=== PATIENT | female | born 1940 | race Caucasian/White ===

== ENCOUNTER 2017-06-06 09:56 | Outpatient (CLI) | payer MEDICARE ==
[~2017-06-06 09:56] MED LIST: AMLO2.5T2 PO; CALC600T2 PO; CLOP75TA35 PO; CYAN1TAB41 PO; MELA3TAB PO; MULT-968 PO; PANT-47 PO; RANI150T12 PO; SIMV20TA5 PO
[2017-06-06] MEDS ORDERED: iohexol 350MG/ML 100ml bottle IV ONE (10:26)
== END 2017-06-06 23:59 | disposition home or self-care (01) ==
LOC: RAD 09:56
PROVIDERS: ATTEND Family Medicine
DX: E04.1 Nontoxic single thyroid nodule (principal); J43.8 Other emphysema; R90.82 White matter disease, unspecified; R47.01 Aphasia; I10 Essential (primary) hypertension; F17.200 Nicotine dependence, unspecified, uncomplicated
CPT/HCPCS: 70498; 70544; 70551; Q9967

== ENCOUNTER 2017-09-28 15:38 | Inpatient (IN) | payer MEDICARE ==
[~2017-09-28] VITALS: Ht 170.2 cm; Wt 62.1 kg
[~2017-09-28 15:38] MED LIST changes: -RANI150T12 PO; +RANI150T44 PO
[2017-09-28] MEDS ORDERED: normal saline 1000ML IV soln IVB ONE (16:10)
[2017-09-28 16:29] LABS: BASOPHILS % (AUTO) 0.2 % (0-1); EOSINOPHILS # (AUTO) 0.2 X10'3 (0-0.9); EOSINOPHILS % (AUTO) 1.8 % (0-6); HEMATOCRIT 36.9 % (35.0-45.0); HEMOGLOBIN 13.2 g/dl (12.0-16.0); LYMPHOCYTES # (AUTO) 0.6 X10'3 (1.1-4.8); LYMPHOCYTES % (AUTO) 7.4 % (21-51); MEAN CORPUSCULAR HEMOGLOBIN 36.1 PG (27.0-31.0); MEAN CORPUSCULAR HGB CONC 35.7 % (33.0-36.5); MEAN CORPUSCULAR VOLUME 101.2 FL (78-98); MEAN PLATELET VOLUME 7.7 FL (7.4-10.4); MONOCYTES # (AUTO) 0.4 X10'3 (0-0.9); MONOCYTES % (AUTO) 4.6 % (2-12); NEUTROPHILS # (AUTO) 7.4 X10'3 (1.8-7.7); PLATELET COUNT 233 X10'3 (140-440); RED BLOOD COUNT 3.65 X10'6 (4.20-5.60); RED CELL DISTRIBUTION WIDTH 12.8 % (11.5-14.5); WHITE BLOOD COUNT 8.6 X10'3 (4.5-11.0)
[2017-09-28 16:31] LABS: OCCULT BLOOD STOOL POSITIVE (Neg)
[2017-09-28 17:11] LABS: ALANINE AMINOTRANSFERASE 16 U/L (12-78); ALBUMIN 3.1 G/DL (3.4-5.0); ALKALINE PHOSPHATASE 39 IU/L (46-116); ANION GAP 9 (8-16); ASPARTATE AMINO TRANSFERASE 16 U/L (10-37); BILIRUBIN,TOTAL 0.7 MG/DL (0.1-1.0); BLOOD UREA NITROGEN 20 MG/DL (7-18); BUN/CREATININE RATIO 26.3 (6.6-38.0); CALCIUM 8.6 MG/DL (8.5-10.1); CHLORIDE 106 MMOL/L (99-107); CREATININE 0.76 MG/DL (0.40-0.90); GLUCOSE 123 MG/DL (70-104); LIPASE 87 U/L (73-393); POTASSIUM 3.6 MMOL/L (3.5-5.1); SODIUM 143 MMOL/L (135-145); TOTAL CARBON DIOXIDE 27.9 MMOL/L (24-32); TOTAL PROTEIN 6.2 G/DL (6.4-8.2); eGFR 74 ML/MIN
[2017-09-28] MEDS ORDERED: acetaminophen 325mg tablet PO PRN ×2 (18:05)
[2017-09-28] MEDS ORDERED: mag hydrox/Alum hydrox/simeth 30ml oral suspension PO PRN (18:05)
[2017-09-28] MEDS ORDERED: HYDROcodone/acetaminophen 5mg/325mg tablet PO PRN (18:05)
[2017-09-28] MEDS ORDERED: ondansetron/PF 4mg/2ml inj IV PRN (18:05)
[2017-09-28] MEDS ORDERED: magnesium hydroxide 30ml (MOM) UD suspension PO PRN (18:05)
[2017-09-28] MEDS ORDERED: HYDROcodone/acetaminophen 10/325mg tab PO PRN (18:05)
[2017-09-28] MEDS ORDERED: PEG 3350/Na sulf,bicarb,Cl/KCl oral sol 4 liter bottle PO ONE (18:05)
[2017-09-28] MEDS ORDERED: Melatonin 3mg tablet PO PRN (18:10)
[2017-09-28 19:07] VITALS: BP 119/53
[2017-09-28] MEDS ORDERED: MIDAZolam 5mg/5ml vial ONE (19:12)
[2017-09-28] MEDS ORDERED: fentaNYL/PF 50MCG/1 ML 2ML syringe ONE (19:12)
[2017-09-28] MEDS ORDERED: epiNEPHrine 0.1mg/ml 10ml syringe ONE (19:33)
[2017-09-28 19:56] VITALS: BP 111/51
[2017-09-28 20:06] VITALS: BP 104/50
[2017-09-28 20:16] VITALS: BP 105/54
[2017-09-28 20:26] VITALS: BP 108/54
[2017-09-28] MEDS ORDERED: temazepam 15mg capsule PO PRN (21:00)
[2017-09-28] MEDS: famotidine 20mg tablet PO SCH (21:14)
[2017-09-28] MEDS: normal saline 1000ml 1,000 ML IV SCH (21:14)
[2017-09-28] MEDS: atorvastatin 10mg tablet PO SCH (21:14)
[2017-09-28] MEDS: cyanocobalamin 500mcg tablet PO SCH (21:15)
[2017-09-28 22:23] LABS: BASOPHILS % (AUTO) 0.4 % (0-1); EOSINOPHILS # (AUTO) 0.2 X10'3 (0-0.9); EOSINOPHILS % (AUTO) 1.8 % (0-6); HEMATOCRIT 28.4 % (35.0-45.0); HEMOGLOBIN 9.8 g/dl (12.0-16.0); LYMPHOCYTES % (AUTO) 8.1 % (21-51); MEAN CORPUSCULAR HEMOGLOBIN 35.8 PG (27.0-31.0); MEAN CORPUSCULAR HGB CONC 34.6 % (33.0-36.5); MEAN CORPUSCULAR VOLUME 103.4 FL (78-98); MEAN PLATELET VOLUME 6.8 FL (7.4-10.4); MONOCYTES # (AUTO) 0.4 X10'3 (0-0.9); MONOCYTES % (AUTO) 3.4 % (2-12); NEUTROPHILS % (AUTO) 86.3 % (42-75); PLATELET COUNT 212 X10'3 (140-440); RED BLOOD COUNT 2.75 X10'6 (4.20-5.60); WHITE BLOOD COUNT 12.7 X10'3 (4.5-11.0)
[2017-09-29] VITALS (9 sets, daily range): BP systolic 117–149; BP diastolic 30–59
[2017-09-29] MEDS: normal saline 1000ml 1,000 ML IV SCH (05:33)
[2017-09-29 07:15] LABS: BASOPHILS % (AUTO) 0.4 % (0-1); EOSINOPHILS # (AUTO) 0.2 X10'3 (0-0.9); EOSINOPHILS % (AUTO) 2.4 % (0-6); HEMATOCRIT 24.8 % (35.0-45.0); HEMOGLOBIN 8.5 g/dl (12.0-16.0); LYMPHOCYTES # (AUTO) 1.2 X10'3 (1.1-4.8); LYMPHOCYTES % (AUTO) 19.7 % (21-51); MEAN CORPUSCULAR HEMOGLOBIN 35.6 PG (27.0-31.0); MEAN CORPUSCULAR HGB CONC 34.4 % (33.0-36.5); MEAN CORPUSCULAR VOLUME 103.4 FL (78-98); MEAN PLATELET VOLUME 7.4 FL (7.4-10.4); MONOCYTES # (AUTO) 0.4 X10'3 (0-0.9); MONOCYTES % (AUTO) 5.6 % (2-12); NEUTROPHILS # (AUTO) 4.6 X10'3 (1.8-7.7); NEUTROPHILS % (AUTO) 71.9 % (42-75); PLATELET COUNT 178 X10'3 (140-440); RED CELL DISTRIBUTION WIDTH 12.9 % (11.5-14.5); WHITE BLOOD COUNT 6.3 X10'3 (4.5-11.0)
[2017-09-29 07:29] LABS: ALBUMIN 2.5 G/DL (3.4-5.0); ANION GAP 4 (8-16); BLOOD UREA NITROGEN 13 MG/DL (7-18); BUN/CREATININE RATIO 18.3 (6.6-38.0); CALCIUM 8.2 MG/DL (8.5-10.1); CHLORIDE 112 MMOL/L (99-107); CREATININE 0.71 MG/DL (0.40-0.90); GLUCOSE 90 MG/DL (70-104); POTASSIUM 3.9 MMOL/L (3.5-5.1); SODIUM 146 MMOL/L (135-145); TOTAL CARBON DIOXIDE 30.3 MMOL/L (24-32); eGFR 80 ML/MIN
[2017-09-29] MEDS: folic acid 0.4mg tablet PO SCH ×2 (08:00→09:29)
[2017-09-29] MEDS: cyanocobalamin 500mcg tablet PO SCH ×3 (08:00→20:51)
[2017-09-29] MEDS: famotidine 20mg tablet PO SCH ×2 (08:20→20:51)
[2017-09-29] MEDS: calcium carbonate 500mg tablet PO SCH (08:20)
[2017-09-29] MEDS: pantoprazole 40mg Tablet.DR PO SCH (08:21)
[2017-09-29] MEDS: amLODIPine 5mg tablet PO SCH (08:21)
[2017-09-29] MEDS: multivitamins, therapeutics tablet PO SCH (08:21)
[2017-09-29] MEDS ORDERED: diphenhydrAMINE 25mg capsule PO ONE (12:50)
[2017-09-29] MEDS ORDERED: acetaminophen 325mg tablet PO ONE (12:50)
[2017-09-29] MEDS: potassium cl 20mEq in 1/2 NS 1,000 ML IV SCH (13:15)
[2017-09-29] MEDS: levoFLOXACIN-Levaquin 500mg/D5 100 ML IV SCH (13:24)
[2017-09-29] MEDS: atorvastatin 10mg tablet PO SCH (20:51)
[2017-09-29 22:02] LABS: BASOPHILS % (AUTO) 0.5 % (0-1); EOSINOPHILS # (AUTO) 0.1 X10'3 (0-0.9); EOSINOPHILS % (AUTO) 2.2 % (0-6); HEMATOCRIT 30.9 % (35.0-45.0); HEMOGLOBIN 10.8 g/dl (12.0-16.0); LYMPHOCYTES # (AUTO) 1.3 X10'3 (1.1-4.8); LYMPHOCYTES % (AUTO) 23.9 % (21-51); MEAN CORPUSCULAR HEMOGLOBIN 34.6 PG (27.0-31.0); MEAN CORPUSCULAR VOLUME 98.9 FL (78-98); MEAN PLATELET VOLUME 7.6 FL (7.4-10.4); MONOCYTES # (AUTO) 0.4 X10'3 (0-0.9); MONOCYTES % (AUTO) 7.2 % (2-12); NEUTROPHILS # (AUTO) 3.6 X10'3 (1.8-7.7); NEUTROPHILS % (AUTO) 66.2 % (42-75); PLATELET COUNT 193 X10'3 (140-440); RED BLOOD COUNT 3.12 X10'6 (4.20-5.60); WHITE BLOOD COUNT 5.4 X10'3 (4.5-11.0)
[2017-09-30] VITALS: BP 118/45
[2017-09-30] MEDS ORDERED: potassium cl 20mEq in 1/2 NS 1,000 ML IV ONE (02:31)
[2017-09-30] MEDS: potassium cl 20mEq in 1/2 NS 1,000 ML IV SCH (02:34)
[2017-09-30 04:01] LABS: BASOPHILS % (AUTO) 0.6 % (0-1); EOSINOPHILS # (AUTO) 0.1 X10'3 (0-0.9); EOSINOPHILS % (AUTO) 3.2 % (0-6); HEMATOCRIT 28.8 % (35.0-45.0); HEMOGLOBIN 10.1 g/dl (12.0-16.0); LYMPHOCYTES # (AUTO) 1.1 X10'3 (1.1-4.8); LYMPHOCYTES % (AUTO) 24.6 % (21-51); MEAN CORPUSCULAR HEMOGLOBIN 34.9 PG (27.0-31.0); MEAN CORPUSCULAR VOLUME 99.6 FL (78-98); MEAN PLATELET VOLUME 7.4 FL (7.4-10.4); MONOCYTES # (AUTO) 0.4 X10'3 (0-0.9); NEUTROPHILS # (AUTO) 2.9 X10'3 (1.8-7.7); NEUTROPHILS % (AUTO) 63.6 % (42-75); PLATELET COUNT 179 X10'3 (140-440); RED BLOOD COUNT 2.89 X10'6 (4.20-5.60); RED CELL DISTRIBUTION WIDTH 14.6 % (11.5-14.5); WHITE BLOOD COUNT 4.6 X10'3 (4.5-11.0)
[2017-09-30 04:15] LABS: ALBUMIN 2.8 G/DL (3.4-5.0); ANION GAP 8 (8-16); BLOOD UREA NITROGEN 6 MG/DL (7-18); BUN/CREATININE RATIO 11.1 (6.6-38.0); CALCIUM 8.5 MG/DL (8.5-10.1); CHLORIDE 108 MMOL/L (99-107); CREATININE 0.54 MG/DL (0.40-0.90); GLUCOSE 88 MG/DL (70-104); POTASSIUM 3.7 MMOL/L (3.5-5.1); SODIUM 143 MMOL/L (135-145); TOTAL CARBON DIOXIDE 26.9 MMOL/L (24-32); eGFR > 90 ML/MIN
[2017-09-30 07:09] VITALS: BP 131/52
[2017-09-30 07:16] VITALS: BP_SYST 114; BP_SYST 124; BP_SYST 131; BP_DIAS 50; BP_DIAS 52; BP_DIAS 54
[2017-09-30] MEDS: pantoprazole 40mg Tablet.DR PO SCH (07:30)
[2017-09-30] MEDS: folic acid 0.4mg tablet PO SCH (07:30)
[2017-09-30] MEDS: levoFLOXACIN-Levaquin 500mg/D5 100 ML IV SCH (07:30)
[2017-09-30] MEDS: famotidine 20mg tablet PO SCH ×2 (07:30→20:27)
[2017-09-30] MEDS: amLODIPine 5mg tablet PO SCH (07:30)
[2017-09-30] MEDS: cyanocobalamin 500mcg tablet PO SCH ×2 (08:00→20:28)
[2017-09-30] MEDS: calcium carbonate 500mg tablet PO SCH (08:00)
[2017-09-30] MEDS: multivitamins, therapeutics tablet PO SCH (08:00)
[2017-09-30 10:53] LABS: BASOPHILS % (AUTO) 0.3 % (0-1); EOSINOPHILS # (AUTO) 0.1 X10'3 (0-0.9); EOSINOPHILS % (AUTO) 2.7 % (0-6); HEMATOCRIT 34.1 % (35.0-45.0); HEMOGLOBIN 11.8 g/dl (12.0-16.0); LYMPHOCYTES # (AUTO) 0.7 X10'3 (1.1-4.8); LYMPHOCYTES % (AUTO) 11.9 % (21-51); MEAN CORPUSCULAR HEMOGLOBIN 34.7 PG (27.0-31.0); MEAN CORPUSCULAR HGB CONC 34.5 % (33.0-36.5); MEAN CORPUSCULAR VOLUME 100.7 FL (78-98); MEAN PLATELET VOLUME 7.6 FL (7.4-10.4); MONOCYTES # (AUTO) 0.2 X10'3 (0-0.9); NEUTROPHILS # (AUTO) 4.5 X10'3 (1.8-7.7); NEUTROPHILS % (AUTO) 81.1 % (42-75); PLATELET COUNT 199 X10'3 (140-440); RED BLOOD COUNT 3.39 X10'6 (4.20-5.60); RED CELL DISTRIBUTION WIDTH 14.6 % (11.5-14.5); WHITE BLOOD COUNT 5.5 X10'3 (4.5-11.0)
[2017-09-30 11:51] VITALS: BP 122/46
[2017-09-30] MEDS ORDERED: docusate sod 100mg capsule PO ONE (13:25)
[2017-09-30 19:00] VITALS: BP 135/56
[2017-09-30 20:00] VITALS: BP_SYST 120; BP_SYST 129; BP_SYST 135; BP_DIAS 45; BP_DIAS 55; BP_DIAS 56
[2017-09-30] MEDS: atorvastatin 10mg tablet PO SCH (20:28)
[2017-10-01] VITALS (9 sets, daily range): BP systolic 109–139; BP diastolic 39–75
[2017-10-01 05:34] LABS: BASOPHILS % (AUTO) 0.8 % (0-1); EOSINOPHILS # (AUTO) 0.2 X10'3 (0-0.9); EOSINOPHILS % (AUTO) 4.5 % (0-6); HEMATOCRIT 29.2 % (35.0-45.0); HEMOGLOBIN 10.3 g/dl (12.0-16.0); LYMPHOCYTES # (AUTO) 1.4 X10'3 (1.1-4.8); LYMPHOCYTES % (AUTO) 26.1 % (21-51); MEAN CORPUSCULAR HEMOGLOBIN 35.3 PG (27.0-31.0); MEAN CORPUSCULAR HGB CONC 35.2 % (33.0-36.5); MEAN CORPUSCULAR VOLUME 100.5 FL (78-98); MEAN PLATELET VOLUME 7.6 FL (7.4-10.4); MONOCYTES # (AUTO) 0.5 X10'3 (0-0.9); MONOCYTES % (AUTO) 8.7 % (2-12); NEUTROPHILS # (AUTO) 3.2 X10'3 (1.8-7.7); NEUTROPHILS % (AUTO) 59.9 % (42-75); PLATELET COUNT 183 X10'3 (140-440); RED CELL DISTRIBUTION WIDTH 14.1 % (11.5-14.5); WHITE BLOOD COUNT 5.3 X10'3 (4.5-11.0)
[2017-10-01 06:06] LABS: ALBUMIN 2.9 G/DL (3.4-5.0); ANION GAP 9 (8-16); BLOOD UREA NITROGEN 7 MG/DL (7-18); BUN/CREATININE RATIO 11.3 (6.6-38.0); CALCIUM 8.7 MG/DL (8.5-10.1); CHLORIDE 107 MMOL/L (99-107); CREATININE 0.62 MG/DL (0.40-0.90); GLUCOSE 95 MG/DL (70-104); POTASSIUM 3.6 MMOL/L (3.5-5.1); SODIUM 142 MMOL/L (135-145); eGFR > 90 ML/MIN
[2017-10-01] MEDS: folic acid 0.4mg tablet PO SCH (07:44)
[2017-10-01] MEDS: calcium carbonate 500mg tablet PO SCH (07:45)
[2017-10-01] MEDS: famotidine 20mg tablet PO SCH ×2 (07:45→20:27)
[2017-10-01] MEDS: multivitamins, therapeutics tablet PO SCH (07:46)
[2017-10-01] MEDS: pantoprazole 40mg Tablet.DR PO SCH (07:46)
[2017-10-01] MEDS: cyanocobalamin 500mcg tablet PO SCH ×2 (07:48→20:27)
[2017-10-01] MEDS ORDERED: magnesium hydroxide 30ml (MOM) UD suspension PO ONE (13:20)
[2017-10-01] MEDS: atorvastatin 10mg tablet PO SCH (20:28)
[2017-10-01] MEDS ORDERED: docusate sod 250mg capsule PO SCH (21:00)
[2017-10-02] VITALS: BP 117/42
[2017-10-02 05:51] LABS: BASOPHILS % (AUTO) 0.6 % (0-1); EOSINOPHILS # (AUTO) 0.2 X10'3 (0-0.9); EOSINOPHILS % (AUTO) 4.1 % (0-6); HEMATOCRIT 30.3 % (35.0-45.0); HEMOGLOBIN 10.7 g/dl (12.0-16.0); LYMPHOCYTES # (AUTO) 1.2 X10'3 (1.1-4.8); LYMPHOCYTES % (AUTO) 21.1 % (21-51); MEAN CORPUSCULAR HEMOGLOBIN 35.3 PG (27.0-31.0); MEAN CORPUSCULAR HGB CONC 35.2 % (33.0-36.5); MEAN CORPUSCULAR VOLUME 100.2 FL (78-98); MONOCYTES # (AUTO) 0.5 X10'3 (0-0.9); MONOCYTES % (AUTO) 8.6 % (2-12); NEUTROPHILS # (AUTO) 3.6 X10'3 (1.8-7.7); NEUTROPHILS % (AUTO) 65.6 % (42-75); PLATELET COUNT 213 X10'3 (140-440); RED BLOOD COUNT 3.03 X10'6 (4.20-5.60); RED CELL DISTRIBUTION WIDTH 14.3 % (11.5-14.5); WHITE BLOOD COUNT 5.5 X10'3 (4.5-11.0)
[2017-10-02 06:07] LABS: ALBUMIN 3.1 G/DL (3.4-5.0); ANION GAP 7 (8-16); BLOOD UREA NITROGEN 7 MG/DL (7-18); BUN/CREATININE RATIO 10.6 (6.6-38.0); CALCIUM 8.9 MG/DL (8.5-10.1); CHLORIDE 107 MMOL/L (99-107); CREATININE 0.66 MG/DL (0.40-0.90); GLUCOSE 90 MG/DL (70-104); POTASSIUM 3.7 MMOL/L (3.5-5.1); SODIUM 143 MMOL/L (135-145); TOTAL CARBON DIOXIDE 28.8 MMOL/L (24-32); eGFR 88 ML/MIN
[2017-10-02 07:17] VITALS: BP 116/41
[2017-10-02] MEDS: famotidine 20mg tablet PO SCH (07:22)
[2017-10-02] MEDS: multivitamins, therapeutics tablet PO SCH (07:22)
[2017-10-02] MEDS: pantoprazole 40mg Tablet.DR PO SCH (07:22)
[2017-10-02] MEDS: calcium carbonate 500mg tablet PO SCH (07:22)
[2017-10-02] MEDS: folic acid 0.4mg tablet PO SCH (07:23)
[2017-10-02] MEDS: cyanocobalamin 500mcg tablet PO SCH (07:23)
[2017-10-02 09:56] VITALS: BP_SYST 112; BP_SYST 120; BP_SYST 128; BP_DIAS 46; BP_DIAS 50
[2017-10-02 11:46] VITALS: BP 121/51
== END 2017-10-02 14:16 | disposition home or self-care (01) | DRG 920 ==
LOC: ER 15:39 → UNDOADMOB 18:05 → OBSVTOIN 18:05 → ED HOLD 18:05 → EDBEDREQ 18:50 → SUR 3N 09-29 20:31
PROVIDERS: ADMIT Hospitalist; ATTEND Internal Medicine
PROC: 0W3P8ZZ Control Bleeding in Gastrointestinal Tract, Via Natural or Artificial Opening Endoscopic (ICD-10-PCS; principal; 2017-09-28)
PROC: 3E0H8GC Introduction of Other Therapeutic Substance into Lower GI, Via Natural or Artificial Opening Endoscopic (ICD-10-PCS; 2017-09-28)
PROC: 30233N1 Transfusion of Nonautologous Red Blood Cells into Peripheral Vein, Percutaneous Approach (ICD-10-PCS; 2017-09-29)
DX: K91.840 Postprocedural hemorrhage of a digestive system organ or structure following a digestive system procedure (principal); K63.3 Ulcer of intestine; R47.01 Aphasia; D62 Acute posthemorrhagic anemia; I10 Essential (primary) hypertension; K57.90 Diverticulosis of intestine, part unspecified, without perforation or abscess without bleeding; I25.10 Atherosclerotic heart disease of native coronary artery without angina pectoris; Y83.8 Other surgical procedures as the cause of abnormal reaction of the patient, or of later complication, without mention of misadventure at the time of the procedure; Z79.02 Long term (current) use of antithrombotics/antiplatelets; Z79.899 Other long term (current) drug therapy; I25.2 Old myocardial infarction; Z95.5 Presence of coronary angioplasty implant and graft; Y92.89 Other specified places as the place of occurrence of the external cause
CPT/HCPCS: 36415; 45381; 45382; 74176; 80048; 80053; 82272; 83605; 83690; 85025; 86885; 86900; 86901; 86920; 87070; A4620; G0500; J0171; J1956; J2250; J3010; J7030; P9016; Q0163

== ENCOUNTER 2019-08-26 11:21 | Emergency (ER) | payer MEDICARE ==
[~2019-08-26] VITALS: Ht 172.7 cm; Wt 80.0 kg
[~2019-08-26 11:21] MED LIST changes: -AMLO2.5T2 PO; -MELA3TAB PO; +MELA3TAB39 PO; -RANI150T44 PO; +SIMV-42 PO; -SIMV20TA5 PO
[2019-08-26] MEDS ORDERED: normal saline 1000ML IV soln IVB ONE (11:35)
--- NOTE | 2019-08-26 11:40 | NUR ---
STROKE ALERT CALLED LAST KNOWN NORMAL [id number]
--- NOTE | 2019-08-26 12:00 | NUR ---
PT BACK FROM CT.
[2019-08-26] MEDS ORDERED: azithromycin/NS 500mg/250ml 250 ML IV ONE (12:20)
[2019-08-26 12:22] LABS: BASOPHILS # (AUTO) 0.1 X10'3 (0-0.2); BASOPHILS % (AUTO) 0.3 % (0-1); EOSINOPHILS % (AUTO) 0 % (0-6); HEMATOCRIT 41.4 % (35.0-45.0); HEMOGLOBIN 14.4 g/dl (12.0-16.0); LYMPHOCYTES # (AUTO) 0.3 X10'3 (1.1-4.8); LYMPHOCYTES % (AUTO) 0.9 % (21-51); MEAN CORPUSCULAR HEMOGLOBIN 35.2 PG (27.0-31.0); MEAN CORPUSCULAR HGB CONC 34.7 g/dL (33.0-36.5); MEAN CORPUSCULAR VOLUME 101.4 FL (78-98); MONOCYTES # (AUTO) 0.9 X10'3 (0-0.9); MONOCYTES % (AUTO) 3.3 % (2-12); NEUTROPHILS # (AUTO) 25.8 X10'3 (1.8-7.7); NEUTROPHILS % (AUTO) 95.5 % (42-75); PLATELET COUNT 290 X10'3 (140-440); RED BLOOD COUNT 4.08 X10'6 (4.20-5.60); RED CELL DISTRIBUTION WIDTH 12.5 % (11.5-14.5)
[2019-08-26] MEDS ORDERED: iohexol 350MG/ML 100ml bottle IV ONE (12:25)
[2019-08-26 12:32] LABS: PARTIAL THROMBOPLASTIN TIME 29 SECONDS (22-32)
[2019-08-26 12:37] LABS: LACTIC SEPSIS 3.5 MMOL/L (0.4-2.0)
[2019-08-26] MEDS ORDERED: normal saline 1000ml 1,000 ML IV ONE ×3 (12:40→15:30)
[2019-08-26 12:44] LABS: ALANINE AMINOTRANSFERASE 88 U/L (12-78); ALBUMIN 2.8 G/DL (3.4-5.0); ALBUMIN/GLOBULIN RATIO 0.6 (1.1-1.5); ALKALINE PHOSPHATASE 103 IU/L (46-116); ANION GAP 8 (8-16); ASPARTATE AMINO TRANSFERASE 97 U/L (10-37); BILIRUBIN,TOTAL 1.7 MG/DL (0.1-1.0); BLOOD UREA NITROGEN 20 MG/DL (7-18); BUN/CREATININE RATIO 20.8 (6.6-38.0); CALCIUM 8.9 MG/DL (8.5-10.1); CHLORIDE 101 MMOL/L (99-107); CREATININE 0.96 MG/DL (0.40-0.90); GLUCOSE 157 MG/DL (70-104); POTASSIUM 3.8 MMOL/L (3.5-5.1); SODIUM 137 MMOL/L (135-145); TOTAL CARBON DIOXIDE 28.4 MMOL/L (24-32); TOTAL PROTEIN 7.7 G/DL (6.4-8.2); eGFR 57 ML/MIN
[2019-08-26 12:45] LABS: CREATINE KINASE 771 U/L (26-192); ETHANOL < 0.010 GM/DL (0.0-0.010)
--- NOTE | 2019-08-26 12:47 | NUR ---
NIHSS done and is a 5 but she has hx of previous stroke with expressive aphasia so that is why she is a 5 on the nihss scale. I was called into [facility] for a stroke alert but the last known normal is unknown and time of onset is unkown too. She is presenting like a pneumonia patient and is being ruled out for flu too. They are going to do a CTA head once her labs are back and I did not do a swallow eval because she is having to much problems breathing and is actively coughing.
[2019-08-26 12:53] LABS: AMMONIA < 10 UMOL/L (11-32)
[2019-08-26 13:10] LABS: ABG BASE EXCESS -0.8 mmol/L (-2.0-3.0); ABG HCO3 23.3 mmol/L (22.0-26.0); ABG OXYGEN SATURATION 93.9 % (95-98); ABG PCO2 (T) 38.1 mmHg (35.0-45.0); ABG PH (T) 7.408 (7.350-7.450); ALLEN'S TEST POSITIVE; FCOHb 0.5 % (0.5-1.5); FMetHb 0.1 % (0.3-1.12); FO2Hb 93.3 % (94-100); PATIENT TEMPERATURE 37.9; RESPIRATORY RATE 14 b/min; TIDAL VOLUME 702 mL; TOTAL HEMOGLOBIN 14.4 G/dl (12.0-16.0)
--- NOTE | 2019-08-26 13:13 | NUR ---
Discovered that patient has a bleed on the ct scan so she needs q15 minutes neuro checks and I informed the nurse.
--- NOTE | 2019-08-26 13:13 | NUR ---
assumed care of pt from Germania JOYNER, pt is resting quietly on bed, receiving 2nd liter NS,
[2019-08-26 13:17] LABS: CLARITY,URINE CLEAR (Clear); COLOR,URINE AMBER (Yellow); GLUCOSE, URINE NEGATIVE (Neg); KETONES,URINE NEGATIVE (Neg); LEUKOCYTE ESTERASE ,URINE NEGATIVE (Neg); NITRITES, URINE NEGATIVE (Neg); OCCULT BLOOD,URINE LARGE (Neg); PROTEIN,URINE 100 mg/dl (Neg)
[2019-08-26 13:18] LABS: URINE AMPHETAMINE SCREEN NEGATIVE (Neg); URINE BARBITUATE SCREEN NEGATIVE (Neg); URINE BENZODIAZEPINES SCREEN NEGATIVE (Neg); URINE CANNABINOID SCREEN NEGATIVE (Neg); URINE COCAINE SCREEN NEGATIVE (Neg); URINE METHADONE SCREEN NEGATIVE (Neg); URINE OPIATE SCREEN NEGATIVE (Neg); URINE PHENCYCLIDINE SCREEN NEGATIVE (Neg)
[2019-08-26 13:20] LABS: UA COLLECTION TYPE FOLEY CATH
[2019-08-26 13:26] LABS: MUCUS STRANDS MODERATE /LPF (Neg)
[2019-08-26 13:28] LABS: BACTERIA,URINE 2+ /HPF (Neg); WBC,URINE 0-4 /HPF (0-4)
[2019-08-26 13:34] LABS: LACTATE DEHYDROGENASE 302 U/L (81-234)
[2019-08-26 13:34] LABS: SQUAMOUS EPITHELIAL CELL,UR MANY /LPF (FEW)
--- NOTE | 2019-08-26 13:34 | NUR ---
CHERRY TOSCANO, DAUGHTER, ,
--- NOTE | 2019-08-26 13:36 | NUR ---
PT IS ON BIPAP, KOBI WELL, PT WAS SLEEPING, EASILY AROUSEABLE, Angela SZYMANSKI ASSEMBLER SHOW MOTOR AND I TALKED WITH DAUGHTER, CHERRY TOSCANO, REGARDING CODE STATUS, DAUGHTER HAS POWER OF ATTOURNEY, SHE HAS DNR PAPERWORK, UNABLE TO FAX AT THIS TIME SEVERAL BUSINESSES ARE CLOSED DUE TO THE VIRUS
[2019-08-26 13:50] LABS: PLATELET ESTIMATE NORMAL; TOTAL CELLS COUNTED 100
[2019-08-26] MEDS ORDERED: morphine 2 MG/ML inj. syringe IV ONE (14:15)
--- NOTE | 2019-08-26 14:34 | NUR ---
2ND LITER NS INFUSING, PT CAN COMMUNICATE BY WRITING, NEEDS HER GLASSES BUT UNABLE TO PUT ON DUE TO BIPAP, GRANT HAS FAXED POA PAPERWORK, HAS TALKED WITH FAMILY, THEY DECIDED NO CPR, BUT INTUBATE IF NEEDED, Angela SZYMASNKI MANAGER BENEFIT TALKED WITH DAUGHTER ON THE PHONE, DAUGHTER IS PLANNING ON COMING DOWN FROM [place], [facility] ETA
[2019-08-26] MEDS ORDERED: SERT50TA10 PO (14:39)
[2019-08-26] MEDS ORDERED: LISI-604 PO (14:39)
[2019-08-26] MEDS ORDERED: AMLO10TA13 PO (14:39)
[2019-08-26] MEDS ORDERED: piperacillin/tazo 3.375gm/50ml 50 ML IV ONE (14:50)
--- NOTE | 2019-08-26 15:20 | NUR ---
Angela SZYMANSKI BAG TURNER AWARE OF LACTIC ACID DRAWN AFTER 2 LITERS NS HAVE INFUSED, HE REEVALUATED PT AND GAVE VERBAL ORDER FOR NS 1LITER BOLUS NOW. PT IS WAITING FOR CTA OF HEAD, PAGED CT
--- NOTE | 2019-08-26 15:41 | NUR ---
PLAN TO TRANSFER PT FOR NEURO CONSULT
[2019-08-26] MEDS ORDERED: piperacillin/tazo 3.375gm/50ml 50 ML IV SCH (16:00)
[2019-08-26] MEDS ORDERED: MESSAGE TO NURSING PO NR (16:00)
--- NOTE | 2019-08-26 16:02 | NUR ---
PT HAS GONE TO CT WITH RN, RT, ON MONITOR
--- NOTE | 2019-08-26 16:18 | NUR ---
PT BACK FROM CT
--- NOTE | 2019-08-26 16:21 | NUR ---
RT AT PT BEDSIDE, PLACING BI-PAP
[2019-08-26] MEDS ORDERED: tranexamic acid 1gm/0.7% sal. 100 ML IV ONE (16:25)
--- NOTE | 2019-08-26 16:32 | NUR ---
PT BACK FROM CT, RECEIVED REPORT FROM ARNALDO JOYNER, PT IS BACK ON BIPAP, KOBI WELL, NO RESP DISTRESS, RESP EVEN AND UNLABORED, NO NEURO CHANGES, PUPILS EQUAL AND REACTIVE TO LIGHT, SIZE 4, PT IS FOLLOWING COMMANDS, 4TH LITER NS INFUSING W/O
[2019-08-26] MEDS ORDERED: tranexamic acid inj. 1,000 MG in normal saline 100ml IV soln 100 ML IV ONE (16:35)
[2019-08-26 16:39] VITALS: BP 122/95
--- NOTE | 2019-08-26 17:10 | NUR ---
report to medics, pt transferred to [facility]
--- NOTE | 2019-08-26 17:32 | NUR ---
report given to Jack JOYNER, at [facility]
== END 2019-08-26 17:35 | disposition short-term general hospital (02) ==
LOC: ER 11:21
DX: S06.300A Unspecified focal traumatic brain injury without loss of consciousness, initial encounter (principal); A41.9 Sepsis, unspecified organism; J18.9 Pneumonia, unspecified organism; I25.10 Atherosclerotic heart disease of native coronary artery without angina pectoris; I10 Essential (primary) hypertension; I25.2 Old myocardial infarction; Z95.5 Presence of coronary angioplasty implant and graft; Z79.899 Other long term (current) drug therapy; W18.30XA Fall on same level, unspecified, initial encounter; Y93.01 Activity, walking, marching and hiking; Y92.89 Other specified places as the place of occurrence of the external cause; Y99.9 Unspecified external cause status
CPT/HCPCS: 36415; 36600; 70450; 70496; 71045; 72125; 80053; 80305; 80320; 81001; 82140; 82550; 82803; 83605; 83615; 84145; 84443; 85018; 85025; 85610; 85730; 87040; 87502; 87503; 93005; 94660; 96365; 96366; 96368; 99291; J0456; J2543; J7030; Q9967; 94760; 99285